=== PATIENT | female | born 1970 | race American Indian/Alaskan Native ===

== ENCOUNTER 2019-02-25 21:32 | Emergency (ER) | payer OTHER ==
[2019-02-25 21:39] VITALS: BP 133/85
--- NOTE | 2019-02-25 21:47 | Event Note ---
ED Screening Note Date of service: 02/25/19 Time: 21:42 ED Screening Note: This is a 48 y.o. F. that presents to the ER with numbness and tingling to left forearm for one day. LMP 01/21/2019 Patient is left handed This initial assessment/diagnostic orders/clinical plan/treatment(s) is/are landin bject to change based on patients health status, clinical progression and re- assessment by fellow clinical providers in the ED. Further treatment and workup at subsequent clinical providers discretion. Patient/guardian urged not to elope from the ED as their condition may be serious if not clinically assessed and managed. Initial orders include:
--- NOTE | 2019-02-25 22:41 | Emergency Department Report ---
Upper Extremity - [facility] Chief Complaint: Extremity Injury, Upper Stated Complaint: LEFT ARM NUMBNESS/PAIN Time Seen by Provider: 02/25/19 21:42 Upper Extremity: Left Shoulder (tingling), Left Arm (pain, tingling sensation), Left Elbow, Left Forearm Occurred When: 1 Day Mechanism: Other (spontaneous) Severity: moderate Symptoms: Yes Pain with Movement, Yes Numbness, No Deformity, No Limited Range of Movement, No Weakness, No Swelling, No Bruising/Ecchymosis, No Laceration or Abrasion Other History: Patient is a 48-year-old -[place] female with no past medical history who presents to the ED with complaint of acute onset persistent severe nontraumatic left lateral neck pain with numbness and tingling of left arm for the last 2 days. Patient denies dyspnea, nausea, chest pain, fall, traumatic injury or fever and chills, heavy lifting or back pain. ED Review of Systems ROS: Stated complaint: LEFT ARM NUMBNESS/PAIN Other details as noted in HPI Constitutional: denies: chills, fever Eyes: denies: eye pain, eye discharge, vision change ENT: denies: ear pain, throat pain Respiratory: denies: cough, shortness of breath, wheezing Cardiovascular: denies: chest pain, palpitations Endocrine: no symptoms reported. denies: excessive sweating, flushing, intolerance to heat, increased hunger, increased urine, unexplained weight gain Gastrointestinal: denies: abdominal pain, nausea, vomiting, diarrhea Genitourinary: denies: urgency, dysuria, discharge Musculoskeletal: arthralgia (left arm tingling, pain ), myalgia. denies: back pain, joint swelling Skin: denies: rash, lesions Neurological: denies: headache, weakness, paresthesias Psychiatric: denies: anxiety, depression Hematological/Lymphatic: denies: easy bleeding, easy bruising ED Past Medical Hx - Past Medical History Previous Medical History?: No - Surgical History Past Surgical History?: No - Social History Smoking Status: Never Smoker Substance Use Type: None - Medications Home Medications: Home Medications Medication Instructions Recorded Confirmed Last Taken Type Gabapentin [Neurontin] 300 mg PO Q12H PRN #30 cap 02/25/19 Unknown Rx Naproxen [Naprosyn] 500 mg PO Q12H PRN #20 tablet 02/25/19 Unknown Rx predniSONE [Deltasone] 40 mg PO QDAY #10 tab 02/25/19 Unknown Rx Upper Extremity Exam - Exam General: Vital signs noted. No distress. Alert and acting appropriately. Head and Torso: Yes Neck Tenderness, No HEENT Abnormality, No Chest/Lungs Abnor mality, No Abdominal Tenderness, No Back Tenderness Shoulder Exam: Yes Shoulder Tenderness, Yes Normal Range of Motion in Shoulder, No Clavicle Tenderness, No Shoulder Deformity, No AC Joint Tenderness Arm Exam: Yes Arm/Humerus Tenderness, No Arm Deformity Elbow: Yes Elbow Tenderness, Yes Normal Range of Motion in Elbow, No Elbow Deformity Forearm: No Forearm Tenderness, No Forearm Deformity, No Pain with Pronation, No Pain with Supination Wrist: Yes Normal ROM in Wrist, No Wrist Tenderness, No Wrist Deformity, No Snuffbox Tenderness, No Pain with Axial Thumb Compression Hand: Yes Normal ROM in Digit(s), No Hand Tenderness, No Hand Deformity, No Digit Tenderness, No Digit(s) Deformity, No Tendon Dysfunction CMS Exam: No Broken Skin, No Normal Distal Pulses, No Normal Capillary Refill, No Normal Distal Sensation ED Course Vital Signs 02/25/19 21:37 Temperature 97.3 F L Pulse Rate 68 Respiratory 20 Rate Blood Pressure 133/85 O2 Sat by Pulse 99 Oximetry - Reevaluation(s) Reevaluation #1: 02/25/19 22:42 This is a 48-year-old [place] female with no past medical history presented to the ED with left lateral neck pain with numbness and tingling of left arm. Patient is alert and oriented 3 and is not in distress with normal vital signs. This physical exam findings of left sided cervical radiculopathy patient was discharged home on medications and advised to follow-up with her primary care physician in 7-10 days for reevaluation. Patient was advised to return to the emergency department immediately for further evaluation if symptoms get worse. ED Medical Decision Making - Medical Decision Making This is a 48-year-old [place] female with no past medical history presented to the ED with left lateral neck pain with numbness and tingling of left arm. Patient is alert and oriented 3 and is not in distress with normal vital signs. This physical exam findings of left sided cervical radiculopathy patient was discharged home on medications and advised to follow-up with her primary care physician in 7-10 days for reevaluation. Patient was advised to return to the emergency department immediately for further evaluation if symptoms get worse. - Differential Diagnosis cervical radiculopathy; Muscle strain of left arm; cervical sprain, DDD Critical care attestation.: If time is entered above; I have spent that time in minutes in the direct care of this critically ill patient, excluding procedure time. ED Disposition Clinical Impression: Cervical radiculopathy Muscle strain of left upper extremity Qualifiers: Encounter type: initial encounter Qualified Code(s): S46.912A - Strain of unspecified muscle, fascia and tendon at shoulder and upper arm level, left arm, initial encounter Disposition: TO HOME OR SELFCARE Is pt being admited?: No Does the pt Need Aspirin: No Condition: Stable Instructions: Muscle Strain (ED), Cervical Radiculopathy (ED) Additional Instructions: Take medications with food, drink plenty of fluids and follow up with your primary care physician in 7-10 days for reevaluation. Return to the ED immediately if symptoms get worse. Prescriptions: predniSONE [Deltasone] 40 mg PO QDAY #10 tab Naproxen [Naprosyn] 500 mg PO Q12H PRN #20 tablet PRN Reason: Pain , Severe (7-10) Gabapentin [Neurontin] 300 mg PO Q12H PRN #30 cap PRN Reason: Pain , Severe (7-10) Referrals: PADMINI GALVAN MD [Primary Care Provider] - 3-5 Days Time of Disposition: 22:55 Print Language: MACEDONIAN
== END 2019-02-25 23:06 | disposition home or self-care (01) ==
LOC: ED 21:32
DX: S46.912A Strain of unspecified muscle, fascia and tendon at shoulder and upper arm level, left arm, initial encounter (principal); M54.12 Radiculopathy, cervical region; X58.XXXA Exposure to other specified factors, initial encounter; Y93.89 Activity, other specified; Y92.89 Other specified places as the place of occurrence of the external cause; Y99.8 Other external cause status